=== PATIENT | male | born 1970 | race Caucasian/White ===

== ENCOUNTER 2017-02-04 06:37 | Emergency (ER) | payer OTHER ==
[2017-02-04] MEDS ORDERED: Nitroglycerin TAB 0.4 MG* 0.4 MG TAB SL ONE (07:36)
[2017-02-04] MEDS ORDERED: Aspirin Low Dose CHEW TAB* 81 MG PO ONE (07:36)
[2017-02-04] MEDS ORDERED: NS 0.9% 1000 ML* 1,000 ML IV SCH (07:45)
[2017-02-04 07:56] LABS: Hematocrit 47 % (42-52); Hemoglobin 16.3 g/dl (14.0-18.0); Mean Corpuscular HGB Conc 35 g/dl (31-36); Mean Corpuscular Hemoglobin 31 pg (27-31); Mean Corpuscular Volume 91 fL (80-94); Mean Platelet Volume 9 um3 (7.4-10.4); Red Blood Count 5.21 10^6/ul (4.0-5.4); Red Cell Distribution Width 13 % (10.5-15); White Blood Count 6.5 10^3/ul (3.5-10.8)
[2017-02-04 08:14] LABS: ALT 38 U/L (7-52); Albumin 4.7 g/dL (3.2-5.2); Alkaline Phosphatase 59 U/L (34-104); BUN/Creatinine Ratio 19.8 (8-20); Blood Urea Nitrogen 19 mg/dL (6-24); C Reactive Protein 4.98 mg/L (< 5.00); CO2 Carbon Dioxide 26 mmol/L (22-32); Calcium 9.7 mg/dL (8.6-10.3); Chloride 102 mmol/L (101-111); Creatine Kinase 312 U/L (10-223); Globulin 3.4 g/dL (2-4); Glucose 99 mg/dL (70-100); Lipase 21 U/L (11.0-82.0); Sodium 134 mmol/L (133-145); Total Protein 8.1 g/dL (6.4-8.9)
[2017-02-04 08:16] LABS: TSH (Thyroid Stimulating Horm) 4.47 mcIU/mL (0.34-5.60)
--- NOTE | 2017-02-04 08:19 | RAD ---
HISTORY: Splinting chest pain, left COMPARISONS: January 21, 2016 VIEWS: 2: Frontal dual-energy and lateral views of the chest. FINDINGS: CARDIOMEDIASTINAL SILHOUETTE: The cardiomediastinal silhouette is normal. RANDI: The randi are normal. PLEURA: The costophrenic angles are sharp. No pleural abnormalities are noted. LUNG PARENCHYMA: The lungs are clear. ABDOMEN: The upper abdomen is clear. There is no subphrenic gas. BONES AND SOFT TISSUES: No bone or soft tissue abnormalities are noted. OTHER: None. IMPRESSION: NO ACTIVE CARDIOPULMONARY DISEASE.
[2017-02-04 09:11] LABS: Magnesium 2.2 mg/dL (1.9-2.7)
[2017-02-04] MEDS ORDERED: methylPREDNISolone 125 MG* 2 ML VIAL IV ONE (09:50)
[2017-02-04] MEDS ORDERED: Ketorolac INJ* 30 MG/ML 1 ML VIAL IV ONE (09:54)
[2017-02-04 10:26] LABS: Urine Bilirubin Negative (Negative); Urine Glucose Negative (Negative); Urine Nitrite Negative (Negative)
--- NOTE | 2017-02-04 11:46 | ED ---
Laurie Urias Alok, scribed for Richard Arroyo MD on 02/04/17 at 0756 . HPI Chest Pain - HPI Summary HPI Summary: 46 y/o male presents to ED with c/o CP discrete to his left armpit area. This CP which began two days ago was at first thought by the pt to be muscular pain from walking his dog yesterday, but then worsened late last night from about [id number] prompting his visit to the ED this morning. This CP is characterized by the pt as a burning pain registering at a 6 out of 10 in severity, and worsens with exertion as well as worsens when laying on it. CP however does not worsen with deep breaths or palpation. Pt denies any rash, nausea, diaphoresis, or SOB. PMHx includes HTN, GERD, HLD, and asthma. Pt denies any history of blood clots. - History of Current Complaint Chief Complaint: EDChestPainROMI Time Seen by Provider: 02/04/17 07:20 Hx Obtained From: Patient Onset/Duration: Started Days Ago, Atraumatic, Still Present Timing: Constant Initial Severity: Moderate Current Severity: Moderate Pain Intensity: 6 Pain Scale Used: 0-10 Numeric Chest Pain Location: Discrete at: - Left armpit Chest Pain Radiates: No Character: Burning Aggravating Factor(s): Exertion, Recumbent Position - Left side Alleviating Factor(s): Nothing Associated Signs and Symptoms: Positive: Chest Pain. Negative: Shortness of Breath, Fever, Diaphoresis, Nausea, Calf Pain/Swelling - Allergy/Home Medications Allergies/Adverse Reactions: Allergies Allergy/AdvReac Type Severity Reaction Status Date / Time Oseltamivir [From Tamiflu] Allergy Severe GI Upset Verified 02/13/16 10:43 CI Pigment Blue 63 Allergy GI Upset Verified 02/13/16 10:43 [From Tamiflu] ANAPHYLACTIC SHOCK Allergy See Comment Uncoded 02/13/16 10:43 ENVIROMENTAL Allergy SNEEZING, Uncoded 02/13/16 10:43 CONGESTION PMH/Surg Hx/FS Hx/Imm Hx Endocrine/Hematology History: Reports: Hx Thyroid Disease Denies: Hx Diabetes Cardiovascular History: Reports: Hx Hypertension - ON MEDS Denies: Hx Congestive Heart Failure, Hx Pacemaker/ICD Respiratory History: Reports: Hx Asthma GI History: Reports: Hx Gastroesophageal Reflux Disease - HX OF 2-3 MONTHS AGO R /T LATE NIGHT SNACKING History: Denies: Hx Dialysis, Hx Renal Disease Sensory History: Denies: Hx Contacts or Glasses, Hx Hearing Aid Opthamlomology History: Denies: Hx Contacts or Glasses Psychiatric History: Denies: Hx Panic Disorder - Surgical History Surgery Procedure, Year, and Place: (RIGHT) BROKEN ARM REPAIR AGE 3 Hx Anesthesia Reactions: No Infectious Disease History: No Infectious Disease History: Denies: Traveled Outside the [place] in Last 30 Days - Family History Family History: No Malignant Hyperthermia. No Anesthesia Reaction - Social History Occupation: Employed Full-time Lives: With Family - Alcohol Use: Weekly Alcohol Amount: 5 weekly Hx Substance Use: No Substance Use Type: Reports: None Hx Tobacco Use: No Smoking Status (MU): Never Smoked Tobacco Review of Systems Negative: Fever, Skin Diaphoresis Positive: Chest Pain Negative: Shortness Of Breath Negative: Nausea Negative: Rash All Other Systems Reviewed And Are Negative: Yes Physical Exam - Summary Physical Exam Summary: Appearance: Well-appearing, no pain distress Skin: Warm, skin color reflect adequate color and perfusion, dry. No rash. Head/Face: Normal head/face Eyes: EOMI, PERRL ENT: Normal ENT inspection Neck: Supple, nontender Resp: CTA, breath sounds present Cardio: RRR Abd: Nontender, Soft Bowel: Present Musculo: Normal, Strength, ROM intact Neuro: Normal, sensory/motor intact AxO x3 Psych: Affect/ mood appropriate Triage Information Reviewed: Yes Vital Signs On Initial Exam: Initial Vitals Temp Pulse Resp BP Pulse Ox 97.7 F 78 14 167/112 99 02/04/17 06:41 02/04/17 06:41 02/04/17 06:41 02/04/17 06:41 02/04/17 06:41 Vital Signs Reviewed: Yes - [place] Coma Scale Coma Scale Total: 15 Diagnostics - Vital Signs Vital Signs Temp Pulse Resp BP Pulse Ox 02/04/17 07:00 67 8 151/96 98 02/04/17 06:57 73 12 148/94 98 02/04/17 06:50 72 98 02/04/17 06:41 97.7 F 78 14 167/112 99 - Laboratory Lab Results: Lab Results 02/04/17 02/04/17 02/04/17 Range/Units 06:56 06:56 06:56 WBC 6.5 (3.5-10.8) 10^3/ul RBC 5.21 (4.0-5.4) 10^6/ul Hgb 16.3 (14.0-18.0) g/dl Hct 47 (42-52) % MCV 91 (80-94) fL MCH 31 (27-31) pg MCHC 35 (31-36) g/dl RDW 13 (10.5-15) % Plt Count 204 (150-450) 10^3/ul MPV 9 (7.4-10.4) um3 Neut % (Auto) 61.5 (38-83) % Lymph % (Auto) 24.5 L (25-47) % Humphreys % (Auto) 10.2 H (1-9) % Eos % (Auto) 3.1 (0-6) % Baso % (Auto) 0.7 (0-2) % Absolute Neuts (auto) 4.0 (1.5-7.7) 10^3/ul Absolute Lymphs (auto) 1.6 (1.0-4.8) 10^3/ul Absolute Monos (auto) 0.7 (0-0.8) 10^3/ul Absolute Eos (auto) 0.2 (0-0.6) 10^3/ul Absolute Basos (auto) 0 (0-0.2) 10^3/ul Absolute Nucleated RBC 0.01 10^3/ul Nucleated RBC % 0.1 INR (Anticoag Therapy) (0.89-1.11) APTT (26.0-36.3) seconds D-Dimer, Quantitative (Less Than 230) ng/mL Sodium 134 (133-145) mmol/L Potassium TNP Chloride 102 (101-111) mmol/L Carbon Dioxide 26 (22-32) mmol/L Anion Gap TNP BUN 19 (6-24) mg/dL Creatinine 0.96 (0.67-1.17) mg/dL Est GFR ( Amer) 108.0 (>60) Est GFR (Non-Af Amer) 84.0 (>60) BUN/Creatinine Ratio 19.8 (8-20) Glucose 99 (70-100) mg/dL Lactic Acid 1.3 (0.5-2.0) mmol/L Calcium 9.7 (8.6-10.3) mg/dL Magnesium TNP Total Bilirubin 0.70 (0.2-1.0) mg/dL AST TNP ALT 38 (7-52) U/L Alkaline Phosphatase 59 (34-104) U/L Total Creatine Kinase 312 H (10-223) U/L CK-MB (CK-2) 5.3 (0.6-6.3) ng/mL Troponin I 0.00 (<0.04) ng/mL C-Reactive Protein 4.98 (< 5.00) mg/L B-Natriuretic Peptide ( - 100) pg/mL Total Protein 8.1 (6.4-8.9) g/dL Albumin 4.7 (3.2-5.2) g/dL Globulin 3.4 (2-4) g/dL Albumin/Globulin Ratio 1.4 (1-3) Lipase 21 (11.0-82.0) U/L TSH 4.47 (0.34-5.60) mcIU/mL Urine Color Urine Appearance Urine pH (5-9) Ur Specific [place] (1.010-1.030) Urine Protein (Negative) Urine Ketones (Negative) Urine Blood (Negative) Urine Nitrate (Negative) Urine Bilirubin (Negative) Urine Urobilinogen (Negative) Ur Leukocyte Esterase (Negative) Urine Glucose (Negative) Urine Ascorbic Acid (Negative) 02/04/17 02/04/17 02/04/17 Range/Units 06:56 08:35 08:35 WBC (3.5-10.8) 10^3/ul RBC (4.0-5.4) 10^6/ul Hgb (14.0-18.0) g/dl Hct (42-52) % MCV (80-94) fL MCH (27-31) pg MCHC (31-36) g/dl RDW (10.5-15) % Plt Count (150-450) 10^3/ul MPV (7.4-10.4) um3 Neut % (Auto) (38-83) % Lymph % (Auto) (25-47) % Humphreys % (Auto) (1-9) % Eos % (Auto) (0-6) % Baso % (Auto) (0-2) % Absolute Neuts (auto) (1.5-7.7) 10^3/ul Absolute Lymphs (auto) (1.0-4.8) 10^3/ul Absolute Monos (auto) (0-0.8) 10^3/ul Absolute Eos (auto) (0-0.6) 10^3/ul Absolute Basos (auto) (0-0.2) 10^3/ul Absolute Nucleated RBC 10^3/ul Nucleated RBC % INR (Anticoag Therapy) 0.90 (0.89-1.11) APTT 28.9 (26.0-36.3) seconds D-Dimer, Quantitative < 200 (Less Than 230) ng/mL Sodium (133-145) mmol/L Potassium 3.8 Chloride (101-111) mmol/L Carbon Dioxide (22-32) mmol/L Anion Gap BUN (6-24) mg/dL Creatinine (0.67-1.17) mg/dL Est GFR ( Amer) (>60) Est GFR (Non-Af Amer) (>60) BUN/Creatinine Ratio (8-20) Glucose (70-100) mg/dL Lactic Acid (0.5-2.0) mmol/L Calcium (8.6-10.3) mg/dL Magnesium 2.2 Total Bilirubin (0.2-1.0) mg/dL AST 24 ALT (7-52) U/L Alkaline Phosphatase (34-104) U/L Total Creatine Kinase (10-223) U/L CK-MB (CK-2) (0.6-6.3) ng/mL Troponin I (<0.04) ng/mL C-Reactive Protein (< 5.00) mg/L B-Natriuretic Peptide 44 ( - 100) pg/mL Total Protein (6.4-8.9) g/dL Albumin (3.2-5.2) g/dL Globulin (2-4) g/dL Albumin/Globulin Ratio (1-3) Lipase (11.0-82.0) U/L TSH (0.34-5.60) mcIU/mL Urine Color Urine Appearance Urine pH (5-9) Ur Specific [place] (1.010-1.030) Urine Protein (Negative) Urine Ketones (Negative) Urine Blood (Negative) Urine Nitrate (Negative) Urine Bilirubin (Negative) Urine Urobilinogen (Negative) Ur Leukocyte Esterase (Negative) Urine Glucose (Negative) Urine Ascorbic Acid (Negative) 02/04/17 02/04/17 Range/Units 10:01 10:12 WBC (3.5-10.8) 10^3/ul RBC (4.0-5.4) 10^6/ul Hgb (14.0-18.0) g/dl Hct (42-52) % MCV (80-94) fL MCH (27-31) pg MCHC (31-36) g/dl RDW (10.5-15) % Plt Count (150-450) 10^3/ul MPV (7.4-10.4) um3 Neut % (Auto) (38-83) % Lymph % (Auto) (25-47) % Humphreys % (Auto) (1-9) % Eos % (Auto) (0-6) % Baso % (Auto) (0-2) % Absolute Neuts (auto) (1.5-7.7) 10^3/ul Absolute Lymphs (auto) (1.0-4.8) 10^3/ul Absolute Monos (auto) (0-0.8) 10^3/ul Absolute Eos (auto) (0-0.6) 10^3/ul Absolute Basos (auto) (0-0.2) 10^3/ul Absolute Nucleated RBC 10^3/ul Nucleated RBC % INR (Anticoag Therapy) (0.89-1.11) APTT (26.0-36.3) seconds D-Dimer, Quantitative (Less Than 230) ng/mL Sodium (133-145) mmol/L Potassium Chloride (101-111) mmol/L Carbon Dioxide (22-32) mmol/L Anion Gap BUN (6-24) mg/dL Creatinine (0.67-1.17) mg/dL Est GFR ( Amer) (>60) Est GFR (Non-Af Amer) (>60) BUN/Creatinine Ratio (8-20) Glucose (70-100) mg/dL Lactic Acid (0.5-2.0) mmol/L Calcium (8.6-10.3) mg/dL Magnesium Total Bilirubin (0.2-1.0) mg/dL AST ALT (7-52) U/L Alkaline Phosphatase (34-104) U/L Total Creatine Kinase (10-223) U/L CK-MB (CK-2) (0.6-6.3) ng/mL Troponin I 0.00 (<0.04) ng/mL C-Reactive Protein (< 5.00) mg/L B-Natriuretic Peptide ( - 100) pg/mL Total Protein (6.4-8.9) g/dL Albumin (3.2-5.2) g/dL Globulin (2-4) g/dL Albumin/Globulin Ratio (1-3) Lipase (11.0-82.0) U/L TSH (0.34-5.60) mcIU/mL Urine Color Yellow Urine Appearance Clear Urine pH 7.0 (5-9) Ur Specific [place] 1.021 (1.010-1.030) Urine Protein Negative (Negative) Urine Ketones Negative (Negative) Urine Blood Negative (Negative) Urine Nitrate Negative (Negative) Urine Bilirubin Negative (Negative) Urine Urobilinogen Negative (Negative) Ur Leukocyte Esterase Negative (Negative) Urine Glucose Negative (Negative) Urine Ascorbic Acid * H (Negative) Result Diagrams: 02/04/17 06:56 02/04/17 08:35 Lab Statement: Any lab studies that have been ordered have been reviewed, and results considered in the medical decision making process. - Radiology CXR Xray Interpretation: Positive (See Comments) - IMPRESSION: NO ACTIVE CARDIOPULMONARY DISEASE Radiology Interpretation Completed By: Radiologist - EKG [id number] Cardiac Rate: NL EKG Rhythm: Sinus Rhythm - [address] Segment: Normal Ectopy: None Chest Pain Course/Dx - Course Assessment/Plan: LEFT SIDED CHEST PAIN IMPROVED WITH TORADOL. DISCUSSED RESULTS WITH PATIENT. CHEST PAIN HAD BEEN PRESENT > 12 HOURS UPON ARRIVAL. NO EKG CHANGES OR ELEVATED TROPONINS. DDIMER NEGATIVE. PAIN WORSE WITH LAYING ON THE LEFT SIDE. DISCHARGE HOME STABLE. - Diagnoses Provider Diagnoses: Chest pain Discharge - Discharge Plan Condition: Stable Disposition: HOME Prescriptions: oxyCODONE/Acetamin 5/325 MG* [Percocet 5/325 TAB*] 1 tab PO Q4H PRN #20 tab MDD 6 PRN Reason: Pain Patient Education Materials: Chest Pain (ED) Referrals: Chandan Whitley MD [Primary Care Provider] - Additional Instructions: FOLLOW UP WITH YOUR DOCTOR. TAKE IBUPROFEN 600MG EVERY 6 HOURS NEEDED. PERCOCET DIRECTED NEEDED. RETURN TO THE EMERGENCY DEPARTMENT FOR ANY WORSENING OF YOUR CONDITION; PAIN, SHORTNESS OF BREATH, YOU FEEL ILL OR QUESTIONS OR CONCERNS. The documentation as recorded by the Laurie hollingsworth Alok accurately reflects the service I personally performed and the decisions made by me, Richard Arroyo MD.
[2017-02-04 11:59] VITALS: BP 148/84
== END 2017-02-04 11:57 | disposition home or self-care (01) ==
LOC: ED 06:37
DX: R07.9 Chest pain, unspecified (principal)
CPT/HCPCS: 36415; 71020; 80053; 81003; 82550; 82553; 83605; 83690; 83735; 83880; 84443; 84484; 85025; 85379; 85610; 85730; 86140; 93005; 96374; 99283; A9270-GY; J1885

== ENCOUNTER 2020-06-13 10:55 | Observation (INO) ==
[~2020-06-13 10:55] MED LIST: Buffered Lidocaine 1% SYRIN 1 ml INTRADERM ONE; Lactated Ringers 1000 ml BAG 1,000 ML IV SCH
[2020-06-13] MEDS ORDERED: ceFAZolin 2 GM PREMIX 2 GM/50 ML BAG ONE ×2 (11:03→11:04)
[2020-06-13] MEDS ORDERED: Buffered Lidocaine 1% SYRIN 1 ml INTRADERM ONE (11:03)
[2020-06-13] MEDS ORDERED: Midazolam 2 mg/2 ml VIAL 1 mg/ml 2 ml VIAL (2 mg) ONE ×2 (11:34)
[2020-06-13] MEDS ORDERED: fentaNYL 100 mcg/2 ml 50 MCG/ML VIAL ONE ×2 (11:34→13:08)
[2020-06-13] MEDS ORDERED: ceFAZolin 1 GM ADVAN 1 GM ADDV.VIAL IVPB ONE (12:01)
[2020-06-13] MEDS ORDERED: ROPIVACAINE 5 MG/ML 30 ML BTL (0.5%) ONE (12:49)
[2020-06-13] MEDS ORDERED: HYDROmorphone 1 MG/1 ML SYRINGE IV PRN (13:48)
[2020-06-13] MEDS ORDERED: Ondansetron 4 mg VIAL 2 MG/ML 2 ml VIAL IV PRN ×2 (13:48→15:59)
[2020-06-13] MEDS ORDERED: diPHENhydraMINE IV 50 MG/ML 1 ml VIAL (BENADRYL) IV PRN ×2 (13:48→15:59)
[2020-06-13] MEDS ORDERED: Naloxone 0.4 mg VIAL 0.4 mg/ml 1 ml VIAL IV PRN (13:48)
[2020-06-13] MEDS ORDERED: Dexamethasone IV 4 MG/ML VIAL 1 ml VIAL ONE (15:41)
[2020-06-13] MEDS ORDERED: Propofol 10 MG/ML 20 ML BTL ONE (15:41)
[2020-06-13] MEDS ORDERED: Glycopyrrolate IV 0.2 MG/ML 1 ML VIAL ONE (15:41)
[2020-06-13] MEDS ORDERED: Phenylephrine 40 mcg/mL 10mL (400mcg) SYRINGE ONE (15:41)
[2020-06-13] MEDS ORDERED: Ondansetron 4 mg VIAL 2 MG/ML 2 ml VIAL ONE (15:41)
[2020-06-13] MEDS ORDERED: EPHEDrine (Pressors) 50 MG/ML VIAL ONE (15:41)
[2020-06-13] MEDS ORDERED: Lidocaine 2% PF 5 ML VIAL ONE (15:41)
[2020-06-13] MEDS ORDERED: Succinylcholine 200 mg VIAL 20 mg/ml 10 ml VIAL (200 mg) ONE (15:41)
[2020-06-13] MEDS ORDERED: oxyCODONE/Acetamin 5/325 mg TAB PO PRN (15:59)
[2020-06-13] MEDS ORDERED: Magnesium Hydroxide LIQ 30 ML UDC PO PRN (15:59)
[2020-06-13] MEDS ORDERED: Lactulose 30 ml UDC PO PRN (15:59)
[2020-06-13] MEDS ORDERED: Ondansetron ODT 4 mg TAB 4 MG TAB PO PRN (15:59)
[2020-06-13] MEDS ORDERED: diPHENhydraMINE 25 mg TAB PO PRN (15:59)
[2020-06-13] MEDS: Lactated Ringers 1000 ml BAG 1,000 ML IV SCH (17:40)
[2020-06-13] MEDS: Magnesium Hydroxide LIQ 30 ML UDC PO SCH (20:25)
[2020-06-13] MEDS: oxyCODONE/Acetamin 5/325 mg TAB PO PRN (20:25)
[2020-06-13] MEDS ORDERED: FLUTICASONE 44 MCG INH SCH (21:00)
[2020-06-13] MEDS ORDERED: MDI INH SCH (21:00)
[2020-06-13] MEDS: ceFAZolin 1 GM ADVAN 1 GM in NS 0.9% 50 ML 50 ML IVPB SCH (21:25)
[2020-06-14] MEDS: Lactated Ringers 1000 ml BAG 1,000 ML IV SCH (03:29)
[2020-06-14] MEDS: oxyCODONE/Acetamin 5/325 mg TAB PO PRN ×3 (03:30→13:30)
[2020-06-14] MEDS: ceFAZolin 1 GM ADVAN 1 GM in NS 0.9% 50 ML 50 ML IVPB SCH ×2 (05:28→13:16)
[2020-06-14 07:11] LABS: Hematocrit 34 % (42-52); Hemoglobin 12.6 g/dL (14.0-18.0); Mean Platelet Volume 8.2 fL (7.4-10.4); Platelet Count 216 10^3/uL (150-450)
[2020-06-14 07:42] LABS: Calcium 8.3 mg/dL (8.6-10.3); Potassium 3.4 mmol/L (3.5-5.0)
[2020-06-14 07:48] LABS: EGFR African American 95.7 (>60); EGFR Non-African American 79.1 (>60)
[2020-06-14] MEDS: Magnesium Hydroxide LIQ 30 ML UDC PO SCH (08:12)
[2020-06-14] MEDS ORDERED: FLUTICASONE 44 MCG INH SCH (09:00)
[2020-06-14] MEDS ORDERED: Vitamin THERAPEUTIC TAB PO SCH (09:00)
[2020-06-14] MEDS ORDERED: MDI INH SCH (09:00)
[2020-06-14 11:09] VITALS: BP 116/60
== END 2020-06-14 13:57 | disposition home or self-care (01) ==
LOC: OR 10:55 → INTOOBSV 15:59 → SSU 15:59
PROVIDERS: ADMIT Orthopaedic Surgery Adult Reconstructive Orthopaedic Surgery; ATTEND Orthopaedic Surgery Adult Reconstructive Orthopaedic Surgery

== ENCOUNTER 2023-10-28 06:27 | Observation (INO) ==
[~2023-10-28 06:27] MED LIST changes: +Metoclopramide 5 MG/ML VIAL (10 mg) IV SLOW PU ONE; +Naloxone 0.4 mg VIAL 0.4 mg/ml 1 ml VIAL IV PRN
[2023-10-28] MEDS ORDERED: ROPIVACAINE 5 MG/ML 30 ML BTL (0.5%) ONE (07:04)
[2023-10-28] MEDS ORDERED: Propofol 10 MG/ML 20 ML BTL ONE (07:07)
[2023-10-28] MEDS ORDERED: Rocuronium 50 mg VIAL 10 mg/ml 5 ml VIAL (50 mg) ONE ×2 (07:07→10:24)
[2023-10-28] MEDS ORDERED: Lidocaine 2% PF 5 ML VIAL ONE ×2 (07:08→11:49)
[2023-10-28] MEDS ORDERED: fentaNYL 250 mcg/5 ml 50 MCG/ML 5 ml VIAL (250 MCG) ONE ×2 (07:09→10:23)
[2023-10-28] MEDS ORDERED: Midazolam 2 mg/2 ml VIAL 1 mg/ml 2 ml VIAL (2 mg) ONE (07:09)
[2023-10-28] MEDS ORDERED: Tranexamic Acid 1 GM/100ML BAG 2,000 MG/200 ML BAG IV ONE (07:33)
[2023-10-28] MEDS ORDERED: ceFAZolin 2 GM PREMIX 2 GM/50 ML BAG ONE (07:34)
[2023-10-28 08:12] LABS: Rapid COVID-19 Molecular Undetected (Undetected)
[2023-10-28] MEDS ORDERED: Midazolam 5 mg/5 ml VIAL 1 mg/ml 5 ml VIAL (5 mg) ONE (08:19)
[2023-10-28] MEDS ORDERED: HYDROmorphone 0.5 MG/0.5 ML SYRINGE ONE (09:38)
[2023-10-28] MEDS ORDERED: Dexamethasone IV 4 MG/ML VIAL 1 ml VIAL ONE (09:44)
[2023-10-28] MEDS ORDERED: Ondansetron 4 mg VIAL 2 MG/ML 2 ml VIAL ONE (09:44)
[2023-10-28] MEDS ORDERED: Phenylephrine 40 mcg/mL 10mL (400mcg) SYRINGE ONE (10:18)
[2023-10-28] MEDS ORDERED: Acetaminophen IV 1 GM/100ML 1,000 MG/100 ML BAG IV ONE (10:39)
[2023-10-28] MEDS ORDERED: Ondansetron ODT 4 mg TAB 4 MG TAB PO PRN (10:42)
[2023-10-28] MEDS ORDERED: Ondansetron 4 mg VIAL 2 MG/ML 2 ml VIAL IV PRN (10:42)
[2023-10-28] MEDS ORDERED: Lactulose 30 ml UDC PO PRN (10:42)
[2023-10-28] MEDS ORDERED: Morphine 2 MG/ML SYRINGE IV PRN (10:42)
[2023-10-28] MEDS ORDERED: Magnesium Hydroxide LIQ 30 ML UDC PO PRN (10:42)
[2023-10-28] MEDS ORDERED: ceFAZolin 1 GM ADVAN 1 GM in NS 0.9% 50 ML 50 ML IVPB SCH (11:00)
[2023-10-28] MEDS ORDERED: fentaNYL 100 mcg/2 ml 50 MCG/ML VIAL ONE ×2 (13:01→13:52)
[2023-10-28] MEDS: fentaNYL 100 mcg/2 ml 50 MCG/ML VIAL IV PRN ×3 (13:03→13:57)
[2023-10-28] MEDS: Lactated Ringers 1000 ml BAG 1,000 ML IV SCH (14:46)
[2023-10-28] MEDS ORDERED: Albuterol HFA INHALER 8 gm MDI INH PRN (15:42)
[2023-10-28] MEDS: ceFAZolin 1 GM ADVAN 1 GM in NS 0.9% 50 ML 50 ML IVPB SCH (18:07)
[2023-10-28] MEDS ORDERED: Mometasone 220 MCG MDI INH SCH (19:00)
[2023-10-28] MEDS: Magnesium Hydroxide LIQ 30 ML UDC PO SCH (21:19)
[2023-10-29] MEDS: Lactated Ringers 1000 ml BAG 1,000 ML IV SCH (00:02)
[2023-10-29] MEDS: ceFAZolin 1 GM ADVAN 1 GM in NS 0.9% 50 ML 50 ML IVPB SCH ×2 (01:41→08:22)
[2023-10-29 07:12] LABS: Hematocrit 32.9 % (38-53); Hemoglobin 11.8 g/dL (13.2-16.3); Mean Platelet Volume 8.7 fL (7.5-11.2); Platelet Count 206 10^3/uL (150-450)
[2023-10-29 07:30] LABS: Calcium 8.8 mg/dL (8.6-10.3); Creatinine, Serum 0.94 mg/dL (0.67-1.17); Potassium 3.7 mmol/L (3.5-5.0); eGFR CKD-EPI 96.9 (>60)
[2023-10-29] MEDS: Magnesium Hydroxide LIQ 30 ML UDC PO SCH (08:23)
[2023-10-29] MEDS ORDERED: Vitamin THERAPEUTIC TAB PO SCH (09:00)
[2023-10-29 10:13] VITALS: BP 114/66
== END 2023-10-29 12:00 | disposition home or self-care (01) ==
LOC: SSU 06:27 → OR 06:27
PROVIDERS: ADMIT Orthopaedic Surgery Adult Reconstructive Orthopaedic Surgery; ATTEND Orthopaedic Surgery Adult Reconstructive Orthopaedic Surgery